=== PATIENT | male | born 2000 | race Two or more races ===

== ENCOUNTER 2024-12-20 17:28 | Emergency (ER) | payer MEDICAID, SELFPAY ==
[2024-12-20 18:04] VITALS: BP 158/94; PULSE 77; RESP 18; TEMP 36.8; O2SAT 97; BMI 25.9
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
== END 2024-12-20 18:35 | disposition home or self-care (01) ==
LOC: SERX 18:27
PROVIDERS: Emergency Provider Emergency Medicine
DX: K52.9 Noninfective gastroenteritis and colitis, unspecified (principal)
CPT/HCPCS: 99281

== ENCOUNTER 2025-01-30 17:10 | Emergency (ER) | payer MEDICAID, SELFPAY ==
[2025-01-30 17:10] VITALS: BMI 25.0
[2025-01-30 17:33] VITALS: BP 156/93; PULSE 80; RESP 18; TEMP 37.1; O2SAT 99
--- NOTE | 2025-01-30 17:46 | PD.EDDENTL ---
ED Dental RME/HPI General Chief complaint: Dental/Oral/Throat Stated complaint: SORE THROAT AND RT EAR PAIN Time Seen by Provider: 01/30/25 17:16 Arrival date/time: 01/30/25 17:10 This is a 24-year-old male who comes in for complaint of right ear pain and throat pain for the past 4 days. Patient denies any other symptoms. Patient denies any sick contacts at home. Reports history of diabetes. Related Data Previous Rx's ?Medication ?Instructions ?Recorded ondansetron 4 mg disintegrating 4 mg PO Q8H PRN nausea and 12/20/24 tablet vomiting #10 tabs Allergies Allergy/AdvReac Type Severity Reaction Status Date / Time No Known Allergies Allergy Verified 01/30/25 17:12 Course Orders Category Date Time Status Amoxicillin/Pot Clav 875 [Augmentin 875] Med 01/30/25 17:45 Once 1 tab PO X1 ONE Ibuprofen Tab [Motrin Tab] Med 01/30/25 17:45 Once 800 mg PO X1 ONE Vital Signs Vital signs: Vital Signs Temperature 98.8 F 01/30/25 17:33 Pulse Rate 80 01/30/25 17:33 Respiratory Rate 18 01/30/25 17:33 Blood Pressure 156/93 H 01/30/25 17:33 Pulse Oximetry (%) 99 01/30/25 17:33 Oxygen Delivery Method Room Air 01/30/25 17:33 Dental / Oral Medications / Prescriptions Medication administrations:: Medication Administration History Amoxicillin/Clavulanate Potassium (Amoxicillin/Pot Clav 875 Tablet) 1 tab PO X1 ONE Stop: 01/30/25 17:46 Ibuprofen (Ibuprofen Tab 400 Mg Tablet) 800 mg PO X1 ONE Stop: 01/30/25 17:46 Discharge Plan Plan Patient Disposition: HOME (Self Care) Patient condition on transfer: Stable Prescriptions/Referrals Prescriptions/Med Rec: No Action ondansetron 4 mg tablet,disintegrating 4 mg PO Q8H PRN (Reason: nausea and vomiting) Qty: 10 0RF Problem List Clinical Impression: Otitis media, Throat pain Patient/Caregiver Discharge Instructions Discharge Activity: activity as tolerated Education Materials: ED Otitis Media Antibiotic ... Additional Instructions: Follow up with primary provider in 1-2 days. Come back to ED if symptoms change or worsen Print Language: Burundian Stand Alone Forms: Jovita Award Info., Patient Portal Info Letter PA/DEMOGRAPHIC ANALYST Supervising Physician PA/DEMOGRAPHIC ANALYST Supervising Physician: jun
[2025-01-30] MEDS: IBUPROFEN TAB 400 MG TABLET 800 MG PO (18:04)
[2025-01-30] MEDS: AMOXICILLIN/POT CLAV 875 TABLET 1 TAB PO (18:05)
== END 2025-01-31 01:23 | disposition home or self-care (01) ==
LOC: SERX 18:03
PROVIDERS: Emergency Provider Emergency Medicine
DX: H66.91 Otitis media, unspecified, right ear (principal); R07.0 Pain in throat; E11.9 Type 2 diabetes mellitus without complications
CPT/HCPCS: 99282; A9270

== ENCOUNTER 2025-07-20 17:31 | Emergency (ER) | payer MEDICAID, SELFPAY ==
[2025-07-20] VITALS (9 sets, daily range): BP systolic 147–200; BP diastolic 88–134; PULSE 76–97; RESP 16–17; TEMP 36.6–37.4; O2SAT 96–98
[2025-07-20] MEDS: SODIUM CHLORIDE 0.9% 1000 ML 1,000 ML 999 ML IV (18:10)
[2025-07-20 18:12] LABS: Base Excess, Venous 3 (-3-3); O2 Saturation, Venous 45 % (96-97); PCO2, Venous 52 mmHg (36-56); PO2, Venous 24 mmHg (15-58); pH, Venous 7.37 (7.33-7.66)
[2025-07-20 18:17] LABS: Beta Hydroxybutyrate 0.2 mmol/L (<0.6)
[2025-07-20 18:18] LABS: Basophils # (Auto) 0.1 Thou/mm3 (0.0-0.2); Basophils % (Auto) 1 % (0-2.5); Eosinophils # (Auto) 0.2 Thou/mm3 (0.0-0.5); Eosinophils % (Auto) 3 % (0-10); Hematocrit 45.8 % (41.0-53.0); Hemoglobin 17.5 g/dL (13.5-16.0); Immature Granulocytes Auto 0.01 Thou/mm3 (0.00-0.00); Lymphocytes # (Auto) 1.9 Thou/mm3 (1.0-4.8); Lymphocytes % (Auto) 33 % (10-50); Mean Corpuscular HGB Conc 38.2 g/dl (31.0-37.0); Mean Corpuscular Hemoglobin 30.9 pg (25.0-35.0); Mean Corpuscular Volume 81 fL (80-100); Monocytes # (Auto) 0.4 Thou/mm3 (0.0-0.8); Monocytes % (Auto) 7 % (0-12); Neutrophils # (Auto) 3.3 Thou/mm3 (1.8-7.7); Neutrophils % (Auto) 56 % (37-80); Nucleated Red Blood Cell # 0.00 Thou/mm3 (0.00-0.00); Nucleated Red Blood Cell % 0 /100 WBC (0); Platelet Count 196 Thou/mm3 (140-440); RDW Standard Deviation 34.3 fL (35.1-43.9); Red Blood Count 5.66 Miln/mm3 (4.50-5.90); White Blood Count 5.8 Thou/mm3 (3.8-10.6)
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
[2025-07-20] MEDS: INSULIN HUM REGULAR 1 UNIT/0.01 ML (PER UNIT) 10 UNIT SC ×2 (18:44→19:29)
[2025-07-20 19:23] LABS: Collection Type, Urine Clean Catch; Squamous Epithelial Cell,Urine 0 /hpf (0-5)
[2025-07-20 19:53] LABS: Bilirubin,Urine Negative (Negative); Blood,Urine Negative (Negative); Clarity,Urine Clear (Clear/Hazy); Color,Urine Colorless (Lt Yel-Yel); Culture Indicated,Urine Not Indicated; Glucose, Urine 4+ (Negative); Ketones,Urine Negative (Negative); Leukocyte Esterase,Urine Negative (Negative); Nitrite,Urine Negative (Negative); PH,Urine 6.5 (5.0-7.0); Protein,Urine Negative (Neg - Trace); RBC,Urine 1 /hpf (0-3); Specific Gravity,Urine 1.023 (1.001-1.035); Urobilinogen,Urine Negative mg/dL (0.0-1.0); WBC,Urine < 1 /hpf (0-5)
--- NOTE | 2025-07-20 20:05 | PC.NURSE ---
pharmacy called to state that the blood draw was contaminated and hemolyzed. lab will do a redraw
[2025-07-20] MEDS: hydrALAZINE INJ 20 MG/ML VIAL IVP (20:53)
[2025-07-20 20:55] LABS: Amphetamine/Methamp Scrn,U Negative (Negative); Barbiturate Screen,Urine Negative (Negative); Benzodiazepines Screen,Urine Negative (Negative); Benzoylecgonine Screen, Ur Negative (Negative); Fentanyl Screen,Urine Negative (Negative); Opiate Screen,Urine Negative (Negative); THC Screen,Urine Negative (Negative)
[2025-07-20] MEDS: LOSARTAN POTASSIUM 25 MG TABLET 50 MG PO (21:22)
[2025-07-20 23:04] LABS: Alanine Aminotransferase 258 U/L (10-49); Albumin, Serum 4.8 gm/dL (3.5-5.0); Albumin/Globulin Ratio 1.9 (1.2-2.2); Alkaline Phosphatase 109 U/L (46-116); Anion Gap 17 (7-16); Aspartate Amino Transferase 124 U/L (0-34); BUN/Creatinine Ratio 9 Ratio (12-20); Bilirubin,Total 0.9 mg/dL (0.3-1.2); Blood Urea Nitrogen 8 mg/dL (9-23); Calcium 9.6 mg/dL (8.3-10.6); Calcium (Corrected) 9.6 mg/dL (8.5-10.1); Carbon Dioxide 20.0 mMol/L (20.0-31.0); Chloride 101 mMol/L (98-107); Creatinine (Component) 0.9 mg/dL (0.6-1.3); Globulin 2.5 gm/dL (2.3-3.5); Glucose 257 mg/dL (74-106); Lipase 38 U/L (12-53); Magnesium 1.9 mg/dL (1.6-2.6); Osmolality,Calculated 282 (275-295); Potassium 3.9 mMol/L (3.4-5.1); Sodium 138 mMol/L (136-145); Total Protein 7.3 gm/dL (5.7-8.2); eGFR > 60 See Note
== END 2025-07-20 22:17 | disposition home or self-care (01) ==
PROVIDERS: Nurse Practitioner Primary Care; Emergency Provider Emergency Medicine
DX: E11.65 Type 2 diabetes mellitus with hyperglycemia (principal); I11.9 Hypertensive heart disease without heart failure
CPT/HCPCS: 36415; 80053; 80307; 81001; 82010; 82803; 83690; 83735; 85025; 99284; J0360; J1815; J7030; A9270